=== PATIENT | male | born 1975 | race Caucasian/White ===

== ENCOUNTER 2019-02-21 14:49 | Emergency (ER) | payer SELFPAY ==
[2019-02-21 15:26] VITALS: BP 139/84
--- NOTE | 2019-02-21 16:40 | ER Document Report ---
ED Medical Screen (RME) - General Chief Complaint: Eye Pain Stated Complaint: EYE PAIN Time Seen by Provider: 02/21/19 16:35 Mode of Arrival: Ambulatory Notes: Patient presents complaining of left eye pain for the past 2 days. Patient reports photophobia and left eye redness with tearing. Patient states that he cannot see anything but lights to the left eye. 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 Patient denies any trauma to the eye. I have greeted and performed a rapid initial assessment of this patient. A comprehensive ED assessment and evaluation of the patient, analysis of test results and completion of the medical decision making process will be conducted by additional ED providers. TRAVEL OUTSIDE OF THE [place] IN LAST 30 DAYS: No - Related Data Allergies/Adverse Reactions: No Known Allergies Allergy (Verified 02/21/19 14:50) Physical Exam - Vital signs Vitals: Temp Pulse Resp BP Pulse Ox 98.0 F 66 20 139/84 H 98 02/21/19 15:05 02/21/19 15:05 02/21/19 15:05 02/21/19 15:05 02/21/19 15:05 - General Notes: Tearing, scleral injection to left eye, opacified area noted to cornea of left eye Course - Vital Signs Vital signs: Temp Pulse Resp BP Pulse Ox 98.0 F 66 20 139/84 H 98 02/21/19 15:05 02/21/19 15:05 02/21/19 15:05 02/21/19 15:05 02/21/19 15:05
--- NOTE | 2019-02-21 19:38 | ER Document Report ---
Doctor's Note Notes: 02/21/19 19:38 I signed up to see this patient. He had been appropriately triaged through pit. I became involved with the transfer of another patient. I was notified by nursing that the patient left AGAINST MEDICAL ADVICE. I did not see, interview, nor evaluate this patient in any way.
== END 2019-02-21 20:00 | disposition left against medical advice (07) ==
LOC: ER 14:49
DX: H53.142 Visual discomfort, left eye (principal); H57.89 Other specified disorders of eye and adnexa; H54.62 Unqualified visual loss, left eye, normal vision right eye; Z53.20 Procedure and treatment not carried out because of patient's decision for unspecified reasons
CPT/HCPCS: 99281

== ENCOUNTER 2020-04-09 00:26 | Emergency (ER) | payer SELFPAY ==
[2020-04-09 01:12] VITALS: BP 181/117
[2020-04-09] MEDS ORDERED: KETOROLAC TROMETHAMINE 60 MG/2 ML SDV IM ONE (01:31)
--- NOTE | 2020-04-09 01:36 | ER Document Report ---
ED Medical Screen (RME) - General Chief Complaint: Flank Pain Stated Complaint: FLANK PAIN Time Seen by Provider: 04/09/20 01:30 Mode of Arrival: Ambulatory Information source: Patient Notes: Is a 45-year-old male coming in today with dysuria, right flank pain, and chills. No history of UTIs. No chronic medical problems. In triage is hypertensive with no previous history. General: No acute distress cardiac regular rate and rhythm Pulmonary no acute distress GI: No CVA tenderness I have greeted and performed a rapid initial assessment of this patient. A comprehensive ED assessment and evaluation of the patient, analysis of test results and completion of the medical decision making process will be conducted by additional ED providers. TRAVEL OUTSIDE OF THE [place] IN LAST 30 DAYS: No - Related Data Allergies/Adverse Reactions: No Known Allergies Allergy (Verified 02/21/19 14:50) Past Medical History Neurological Medical History: Reports: Hx Seizures - no meds Renal/ Medical History: Denies: Hx Peritoneal Dialysis Physical Exam - Vital signs Vitals: Temp Pulse Resp BP Pulse Ox 98.4 F 60 16 181/117 H 97 04/09/20 01:08 04/09/20 01:08 04/09/20 01:08 04/09/20 01:08 04/09/20 01:08 Course - Vital Signs Vital signs: Temp Pulse Resp BP Pulse Ox 98.4 F 60 16 181/117 H 97 04/09/20 01:08 04/09/20 01:08 04/09/20 01:08 04/09/20 01:08 04/09/20 01:08
[2020-04-09 02:05] LABS: APPEARANCE,URINE SLIGHTLY-CLOUDY; BILIRUBIN,URINE NEGATIVE (NEGATIVE); COLOR,URINE YELLOW; GLUCOSE, URINE NEGATIVE (NEGATIVE); KETONES,URINE NEGATIVE (NEGATIVE); PROTEIN,URINE 100 mg/dL (NEGATIVE); URINE SPECIFIC GRAVITY 1.026; UROBILINOGEN,URINE NEGATIVE mg/dL (<2.0)
== END 2020-04-09 03:55 | disposition left against medical advice (07) ==
LOC: ER 00:26
DX: R10.9 Unspecified abdominal pain (principal); R30.0 Dysuria; R68.83 Chills (without fever)
CPT/HCPCS: 99281; 96372; 81001; J1885